=== PATIENT | female | born 1935 | race Caucasian/White ===

== ENCOUNTER 2023-09-24 16:18 | Emergency (ER) | payer MEDICARE, OTHER ==
[~2023-09-24] VITALS: Ht 157.5 cm; Wt 72.1 kg
[2023-09-24 16:11] VITALS: O2SAT 99
[2023-09-24] MEDS ORDERED: LIDO700A30 TP (16:53)
[2023-09-24] MEDS ORDERED: BUME1TAB34 PO (16:53)
[2023-09-24] MEDS ORDERED: ERGO500040 PO (16:53)
[2023-09-24] MEDS ORDERED: METF500T67 (16:53)
[2023-09-24] MEDS ORDERED: MAGN500T2 PO (16:53)
[2023-09-24] MEDS ORDERED: CELE-85 PO (16:53)
[2023-09-24] MEDS ORDERED: ASPI-1420 PO (16:53)
[2023-09-24] MEDS ORDERED: TIZA4TAB5 PO (16:53)
[2023-09-24] MEDS ORDERED: GABA-532 (16:53)
[2023-09-24] MEDS ORDERED: CYAN10006 IM (16:53)
[2023-09-24] MEDS ORDERED: DULO60CA64 PO (16:53)
[2023-09-24] MEDS ORDERED: ESOM40CA PO (16:53)
[2023-09-24] MEDS ORDERED: VERA180C3 PO (16:53)
[2023-09-24] MEDS ORDERED: HYDR25TA4 PO (16:53)
[2023-09-24] MEDS ORDERED: ACET325T53 PO (16:53)
[2023-09-24] MEDS ORDERED: DICL1PAT TD (16:53)
[2023-09-24] MEDS ORDERED: TRAM50TA2 PO (16:53)
[2023-09-24] MEDS ORDERED: PROP10DR15 EACHEYE (16:53)
[2023-09-24] MEDS ORDERED: PRIM50TA5 PO (16:53)
[2023-09-24] MEDS ORDERED: FOLI1TAB27 PO (16:53)
[2023-09-24] MEDS ORDERED: METH1TAB69 PO (16:53)
[2023-09-24] MEDS ORDERED: PRAV40TA3 PO (16:53)
[2023-09-24] MEDS ORDERED: LOSA100T31 PO (16:53)
[2023-09-24] MEDS ORDERED: LINA72CA PO (16:53)
[2023-09-24] MEDS ORDERED: NITR100C PO (16:53)
[2023-09-24] MEDS ORDERED: SPIR25TA (16:53)
[2023-09-24] MEDS ORDERED: CETI10TA14 PO (16:53)
[2023-09-24] MEDS ORDERED: BUPR-319 PO (16:53)
[2023-09-24] MEDS ORDERED: TAMS-3 (16:53)
[2023-09-24] MEDS ORDERED: DOCU100C58 (16:53)
[2023-09-24 16:59] LABS: BASOPHILS # (AUTO) 0.1 K/UL (0.0-0.2); BASOPHILS % (AUTO) 1.4 % (0.0-2.0); EOSINOPHILS # (AUTO) 0.2 K/uL (0.0-0.7); EOSINOPHILS % (AUTO) 3.4 % (0.0-7.0); HEMATOCRIT 34.4 % (31.2-41.9); HEMOGLOBIN 11.6 g/dL (10.9-14.3); LYMPHOCYTES # (AUTO) 1.8 K/uL (0.8-4.8); LYMPHOCYTES % (AUTO) 31.7 % (20.5-51.5); MEAN CORPUSCULAR HEMOGLOBIN 30.4 uug (24.7-32.8); MEAN CORPUSCULAR HGB CONC 34 g/dL (32.3-35.6); MEAN CORPUSCULAR VOLUME 90.1 fL (75.5-95.3); MONOCYTES # (AUTO) 0.6 K/uL (0.1-1.30); MONOCYTES % (AUTO) 10.6 % (0.0-11.0); NEUTROPHILS % (AUTO) 52.9 % (38.5-71.5); PLATELET COUNT (AUTO) 201 K/uL (179-408); RED BLOOD CELL COUNT(AUTO) 3.82 MIL/uL (3.63-4.92); RED CELL DISTRIBUTION WIDTH 13.5 % (12.3-17.7); WHITE BLOOD COUNT (AUTO) 5.7 K/uL (3.8-11.8)
[2023-09-24 17:11] LABS: DIFFERENTIAL COMMENT 1
[2023-09-24 17:22] LABS: AMMONIA < 11 umol/L (11-32)
[2023-09-24 17:27] LABS: CALCIUM 8.6 mg/dL (8.5-10.1); CARBON DIOXIDE 29 mmol/L (21-32); CHLORIDE 100 mmol/L (98-107); CREATININE 1.2 mg/dL (0.6-1.3); GLUCOSE 115 mg/dL (74-106); POTASSIUM 4.4 mmol/L (3.5-5.1); SODIUM SERUM 137 mmol/L (136-145); UREA NITROGEN, BLOOD 28 mg/dL (7-18)
[2023-09-24 17:31] LABS: ALANINE AMINOTRANSFERASE 18 U/L (14-59); ALBUMIN 3.4 g/dL (3.4-5.0); ALKALINE PHOSPHATASE 82 U/L (50-136); ASPARTATE AMINOTRANSFERASE 9 U/L (15-37); BILIRUBIN,DIRECT < 0.1 mg/dL (0.0-0.2); BILIRUBIN,TOTAL 0.2 mg/dL (0.2-1.0); TOTAL PROTEIN, SERUM 7.5 g/dL (6.4-8.2)
[2023-09-24 17:32] LABS: ACETAMINOPHEN < 10.0 ug/mL (10-30); THYROID STIMULATING HORMONE 3.647 mIU/mL (0.358-3.740)
[2023-09-24 17:43] LABS: ETHANOL < 3 MG/DL (0-10)
== END 2023-09-24 18:35 | disposition home or self-care (01) ==
LOC: ER 16:18
DX: R55 Syncope and collapse (principal); Z79.899 Other long term (current) drug therapy; Z88.0 Allergy status to penicillin
CPT/HCPCS: 36415; 70450; 71045; 83605; 84443; 84484; 85025; 85730; 87040; 93005; A4606; A4663; G0480